=== PATIENT | female | born 1945 | race Caucasian/White ===

== ENCOUNTER 2016-11-19 16:02 | Outpatient (CLI) | payer MEDICARE | END 2016-11-19 16:03 | disposition home or self-care (01) | DX: R05 Cough (principal); M54.9 Dorsalgia, unspecified ==

== ENCOUNTER 2017-04-16 16:15 | Outpatient (CLI) | payer MEDICARE ==
--- NOTE | 2017-04-17 09:35 | XRAY Report ---
THREE-VIEW RIGHT SHOULDER: 04/16/2017 CLINICAL INDICATION: Pain. FINDINGS: Internal and external rotational views and a scapular Y view of the right shoulder demonst rate mild degenerative changes of the acromioclavicular joint. There is no evidence of acute fractur e or dislocation. No radiopaque foreign body is seen in the soft tissues. IMPRESSION: MILD AC DEGENERATION. JOB #: [id number] EXT JOB #:[id number]
== END 2017-04-16 16:16 | disposition home or self-care (01) ==
LOC: DI 16:15
PROVIDERS: ATTEND Nurse Practitioner Family
DX: M19.011 Primary osteoarthritis, right shoulder (principal)

== ENCOUNTER 2018-04-26 08:00 | Outpatient (CLI) | payer MEDICARE ==
--- NOTE | 2018-04-26 13:11 | DEXA Report ---
Procedure Date: 04/26/2018 Accession Number: [id number] / [id number] Procedure: DEX - Dexa Spine and/or Hip CPT Code: FULL RESULT: EXAM: Dexa Spine and/or Hip DATE: 04/26/2018 9:05 AM CLINICAL HISTORY: POST MENOPAUSAL/SCREENING MAMMO H/O BREAST CANCER TECHNIQUE: Dual energy x-ray absorptiometry (DXA) was performed on a [employer] System. Regions measured are the AP Spine, femoral neck, and if needed forearm. COMPARISON: None. In accordance with the International Society for Clinical Densitometry (ISCD) guidelines, data from previous exams may be reanalyzed using current recommendations and techniques. This is done to allow a more accurate basis for comparison with the current study. FINDINGS: The data for the lumbar spine is as follows: BMD (g/cm/cm) T-SCORE Z-SCORE REGION L1 0.986 -1.2 0.7 L2 1.032 -1.4 0.5 L3 1.134 -0.6 1.3 L4 1.060 -1.2 0.7 TOTAL 1.057 -1.0 0.8 NOTE: All evaluable vertebrae are used for classification The data for the hip is as follows: BMD (g/cm/cm) T-SCORE Z-SCORE REGION Neck 0.891 -1.1 0.9 TOTAL 0.830 -1.4 0.4 IMPRESSION: THE WHO CLASSIFICATION BASED ON THE INTERNATIONAL REFERENCE STANDARD IS OSTEOPENIA. THE FRACTURE RISK IS INCREASED. RECOMMENDATION: Patients with diagnosis of osteoporosis or osteopenia should have regular bone mineral density assessment. For those eligible for Medicare, routine testing is allowed once every 2 years. Testing frequency can be increased for patients who have rapidly progressing disease or for those who are receiving medical therapy to restore bone mass. COMMENT: World Health Organization (WHO) definitions for osteoporosis and osteopenia: NORMAL BMD: T-score at -1.0 or higher, fracture risk is low OSTEOPENIA BMD: T-score between -1.0 and -2.5, fracture risk is increased. OSTEOPOROSIS BMD: T-score at -2.5 or lower, fracture risk is high. National Osteoporosis Foundation recommends: 1. Obtain adequate dietary calcium (at least 1200 mg per day) and vitamin D (400-800 international units per day). 2. Participate, as appropriate, in regular weightbearing and muscle-strengthening exercise. 3. Avoid tobacco use and reduce alcohol and caffeine intake. 4. For more detailed information see the website at www.NOF.org.
== END 2018-04-26 08:01 | disposition home or self-care (01) ==
LOC: DI 08:00
PROVIDERS: ATTEND Registered Nurse
DX: Z13.820 Encounter for screening for osteoporosis (principal); M85.89 Other specified disorders of bone density and structure, multiple sites; Z78.0 Asymptomatic menopausal state; Z85.3 Personal history of malignant neoplasm of breast; Z79.811 Long term (current) use of aromatase inhibitors
CPT/HCPCS: 77080

== ENCOUNTER 2024-04-04 08:00 | Outpatient (CLI) | payer MEDICARE ==
--- NOTE | 2024-04-04 15:31 | XRAY Report ---
PROCEDURE: Ankle 1-2V RT INDICATIONS: RIGHT ANKLE PAIN TECHNIQUE: 2 views of the ankle were acquired. COMPARISON: None. FINDINGS: Bones: No fractures or dislocations. Ankle mortise is normally aligned. No suspicious bony lesions . Soft tissues: No tibiotalar joint effusion. Achilles tendon appears normal. IMPRESSION: No acute bony abnormality. Reviewed by: Elva Andrews MD, PhD on 04/04/2024 3:29 PM PDT Approved by: Elva Andrews MD, PhD on 04/04/2024 3:29 PM PDT Station ID: [id number]
== END 2024-04-04 23:59 | disposition home or self-care (01) ==
LOC: DI.S 08:00
PROVIDERS: ATTEND Nurse Practitioner
DX: M25.571 Pain in right ankle and joints of right foot (principal)